=== PATIENT | male | born 1995 ===

== ENCOUNTER 2017-05-28 15:16 | Inpatient (IN) | payer OTHER ==
[~2017-05-28] VITALS: Ht 172.7 cm; Wt 61.9 kg
[2017-05-28] MEDS ORDERED: ONDANSETRON INJ 2 MG/ML 2 ML VIAL IV STA (15:50)
[2017-05-28] MEDS ORDERED: SODIUM CHLORIDE 0.9% 1000ML 1,000 ML IV STA (15:50)
[2017-05-28] MEDS ORDERED: OPTIRAY 320 IV PRN (16:00)
[2017-05-28 16:50] LABS: BASO % 0.8 %; BASO ABS # 0.03 K/uL (0-0.2); HEMATOCRIT 47.1 % (42-52); HEMOGLOBIN 16.5 g/dL (14.0-18.0); IG# 0.01 K/uL (0.00-0.02); LYMPH ABS # 0.78 K/uL (1.2-3.4); MEAN CELL VOLUME 81.5 fL (80-100); MEAN CORPUSCULAR HEMOGLOBIN 28.5 pg (25-34); MEAN PLATELET VOLUME 10.2 fL (7.4-10.4); MONO % 14.8 %; MONO ABS # 0.55 K/uL (0.11-0.59); NEUT % 63.1 %; NEUT ABS # 2.35 K/uL (1.4-6.5); PLATELET COUNT 198 K/uL (130-400); RED CELL DISTRIBUTION WIDTH CV 12.6 % (11.5-14.5); RED CELL DISTRIBUTION WIDTH SD 37.8 fL (36.4-46.3); WHITE BLOOD COUNT 3.72 K/uL (4.8-10.8)
[2017-05-28 17:08] LABS: ALBUMIN 4.1 gm/dl (3.4-5.0); CALCIUM 8.9 mg/dl (8.5-10.1); CREATININE 1.09 mg/dl (0.60-1.40); POTASSIUM 3.8 mmol/L (3.5-5.1)
[2017-05-28 17:16] LABS: TOTAL PROTEIN 8.1 gm/dl (6.4-8.2)
--- NOTE | 2017-05-28 17:38 | DIAGNOSTIC IMAGING REPORT ---
CT ABD/PELVIS IV CONTRAST ONLY CLINICAL HISTORY: Generalized abdominal pain COMPARISON STUDY: None. TECHNIQUE: Following the IV administration of 115 mL of Optiray-320, CT scan of the abdomen and pelvis was performed from the lung bases to the proximal femurs. Images are reviewed in the axial, sagittal, and coronal planes. IV contrast was administered without complication. A dose lowering technique was utilized adhering to the principles of ALARA. CT DOSE: 260.53 mGy.cm FINDINGS: Lower chest: The heart is normal in size and configuration, without pericardial effusion. The lung bases and pleural spaces are clear. Liver: The contrast-enhanced liver is normal in size, contour, and attenuation. There is no intrahepatic biliary ductal dilatation. The hepatic veins and portal veins are patent. Gallbladder: Unremarkable. Spleen: Normal in size and attenuation. Pancreas: Unremarkable. Adrenal glands: Unremarkable. Kidneys: There is symmetric renal cortical enhancement. The kidneys are normal in size without hydronephrosis. Bowel: There are no transition zones indicate bowel obstruction. There is no acute diverticulitis. The appendix is probably visualized on coronal reformatted images. There are no CT findings to indicate acute appendicitis. Peritoneum: There is no intraperitoneal free air or abdominal ascites. Vasculature: The abdominal aorta is normal in course and caliber. Adenopathy: There are borderline enlarged mesenteric lymph nodes, likely reactive. Pelvic viscera: The bladder, and pelvic viscera are unremarkable. Skeletal structures: No destructive osseous lesions are seen. IMPRESSION: 1. No evidence of bowel obstruction. No evidence of free air 2. No acute inflammatory changes 3. Borderline enlarged mesenteric lymph nodes, likely reactive Electronically signed by: Don Carballo M.D. 05/28/2017 5:35 PM Dictated Date/Time: 05/28/2017 5:31 PM
[2017-05-28 18:17] LABS: HEP C IGG 13 YRS+OLDER_RFLX NEG (NEG)
[2017-05-28] MEDS ORDERED: ACETAMINOPHEN 325 MG TAB PO PRN (19:45)
[2017-05-28] MEDS ORDERED: ALUMINUM/MAGNESIUM/SIMETH (MAALOX MAX) 30 ML UDC PO PRN (19:45)
[2017-05-28] MEDS ORDERED: MAGNESIUM HYDROXIDE SUSP 30 ML UDC PO PRN (19:45)
[2017-05-28] MEDS ORDERED: ONDANSETRON INJ 2 MG/ML 2 ML VIAL IV PRN (19:45)
--- NOTE | 2017-05-28 20:20 | History and Physical ---
History & Physical Date & Time of Service: May 28, 2017 at 19:46 Chief Complaint: Fever,Loss Of Appetite, Stomach Issues,A Year Ago Primary Care Physician: [facility] History of Present Illness Source: patient, clinic records, hospital records Patient is a pleasant 22 y/o male, with PMHx of typhoid fever, who presented to the ED because of persistent N/V/D, loss of appetite, fever, and body aches x3 weeks. Patient was in [place] over break. During that time, he fell into a sewage drain while playing soccer. He believes he ingested some sewage because when he got out he was coughing. The next day he started to develop fever, abdominal cramping, N/V/D. He was seen by provider in [facility] and placed on antibiotics. The [place] the [place] and symptoms seemed to be resolving. However, over the last 3 days he has been experiencing fevers. He notes he was seen by [facility]- stool cultures and O&P were negative, malaria was negative, influenza and mono negative. Stools alternate between diarrhea and constipation. He denies any melena or BRBPR. He denies tobacco or alcohol use. +anxiousness. +fever/chills. Patient denies any sweats, lightheadedness, dizziness, vision changes, CP, palpitations, edema, SOB, wheezing, cough, urinary symptoms, melena, numbness/ tingling, weakness, depression, active bleeding, or new skin discoloration/ changes. Past Medical/Surgical History Medical Problems: h/o typhoid fever Social History Smoking Status: Never Smoker Drug Use: none Occupational Status: [employer] student Allergies Coded Allergies: Amoxicillin (Unverified Allergy, Unknown, RASH, 05/28/17) Home Medications No Active Prescriptions or Reported Meds Physical Exam Vital Signs Date Time Temp Pulse Resp B/P (MAP) Pulse Ox O2 Delivery O2 Flow Rate FiO2 05/28/17 18:35 80 16 117/80 97 Room Air 05/28/17 18:35 83 18 117/80 100 Room Air 05/28/17 17:00 83 18 108/77 100 Room Air 05/28/17 15:28 38.0 116 20 125/87 97 Room Air General Appearance: no apparent distress Head: normocephalic, atraumatic Eyes: normal inspection, PERRL ENT: hearing grossly normal Neck: supple Respiratory/Chest: lungs clear, no respiratory distress, no accessory muscle use Cardiovascular: regular rate, rhythm Abdomen/GI: normal bowel sounds, non tender, soft Back: normal inspection Extremities/Musculoskelatal: no calf tenderness, no pedal edema Neurologic/Psych: alert, normal mood/affect, oriented x 3 Skin: normal color, warm/dry, no rash Diagnostics Laboratory Results Results Past 24 Hours Test 05/28/17 16:31 Range/Units White Blood Count 3.72 4.8-10.8 K/uL Red Blood Count 5.78 4.7-6.1 M/uL Hemoglobin 16.5 14.0-18.0 g/dL Hematocrit 47.1 42-52 % Mean Corpuscular Volume 81.5 80-100 fL Mean Corpuscular Hemoglobin 28.5 25-34 pg Mean Corpuscular Hemoglobin Concent 35.0 32-36 g/dl Platelet Count 198 130-400 K/uL Mean Platelet Volume 10.2 7.4-10.4 fL Neutrophils (%) (Auto) 63.1 % Lymphocytes (%) (Auto) 21.0 % Monocytes (%) (Auto) 14.8 % Eosinophils (%) (Auto) 0.0 % Basophils (%) (Auto) 0.8 % Neutrophils # (Auto) 2.35 1.4-6.5 K/uL Lymphocytes # (Auto) 0.78 1.2-3.4 K/uL Monocytes # (Auto) 0.55 0.11-0.59 K/uL Eosinophils # (Auto) 0.00 0-0.5 K/uL Basophils # (Auto) 0.03 0-0.2 K/uL RDW Standard Deviation 37.8 36.4-46.3 fL RDW Coefficient of Variation 12.6 11.5-14.5 % Immature Granulocyte % (Auto) 0.3 % Immature Granulocyte # (Auto) 0.01 0.00-0.02 K/uL Urine Color DK YELLOW Urine Appearance CLEAR CLEAR Urine pH 6.5 4.5-7.5 Urine Specific [place] 1.017 1.000-1.030 Urine Protein NEG NEG Urine Glucose (UA) NEG NEG Urine Ketones TRACE NEG Urine Occult Blood NEG NEG Urine Nitrite NEG NEG Urine Bilirubin NEG NEG Urine Urobilinogen NEG NEG Urine Leukocyte Esterase NEG NEG Urine WBC (Auto) 1-5 0-5 /hpf Urine RBC (Auto) 5-10 0-4 /hpf Urine Hyaline Casts (Auto) 1-5 0-5 /lpf Urine Epithelial Cells (Auto) 20-30 0-5 /lpf Urine Bacteria (Auto) NEG NEG Sodium Level 135 136-145 mmol/L Potassium Level 3.8 3.5-5.1 mmol/L Chloride Level 103 98-107 mmol/L Carbon Dioxide Level 27 21-32 mmol/L Anion Gap 5.0 3-11 mmol/L Blood Urea Nitrogen 7 7-18 mg/dl Creatinine 1.09 0.60-1.40 mg/dl Est Creatinine Clear Calc Drug Dose 94.6 ml/min Estimated GFR () 112.6 Estimated GFR (Non- 97.2 BUN/Creatinine Ratio 6.6 10-20 Random Glucose 97 70-99 mg/dl Calcium Level 8.9 8.5-10.1 mg/dl Total Bilirubin 1.0 0.2-1 mg/dl Direct Bilirubin 0.5 0-0.2 mg/dl Aspartate Amino Transf (AST/SGOT) 1137 15-37 U/L Alanine Aminotransferase (ALT/SGPT) 876 12-78 U/L Alkaline Phosphatase 159 45-117 U/L Total Protein 8.1 6.4-8.2 gm/dl Albumin 4.1 3.4-5.0 gm/dl Lipase 113 73-393 U/L Hepatitis B Surface Antigen NEG NEG Hepatitis C Antibody NEG NEG Diagnostic Radiology CT ABD/PELVIS IV CONTRAST ONLY CLINICAL HISTORY: Generalized abdominal pain COMPARISON STUDY: None. TECHNIQUE: Following the IV administration of 115 mL of Optiray-320, CT scan of the abdomen and pelvis was performed from the lung bases to the proximal femurs. Images are reviewed in the axial, sagittal, and coronal planes. IV contrast was administered without complication. A dose lowering technique was utilized adhering to the principles of ALARA. CT DOSE: 260.53 mGy.cm FINDINGS: Lower chest: The heart is normal in size and configuration, without pericardial effusion. The lung bases and pleural spaces are clear. Liver: The contrast-enhanced liver is normal in size, contour, and attenuation. There is no intrahepatic biliary ductal dilatation. The hepatic veins and portal veins are patent. Gallbladder: Unremarkable. Spleen: Normal in size and attenuation. Pancreas: Unremarkable. Adrenal glands: Unremarkable. Kidneys: There is symmetric renal cortical enhancement. The kidneys are normal in size without hydronephrosis. Bowel: There are no transition zones indicate bowel obstruction. There is no acute diverticulitis. The appendix is probably visualized on coronal reformatted images. There are no CT findings to indicate acute appendicitis. Peritoneum: There is no intraperitoneal free air or abdominal ascites. Vasculature: The abdominal aorta is normal in course and caliber. Adenopathy: There are borderline enlarged mesenteric lymph nodes, likely reactive. Pelvic viscera: The bladder, and pelvic viscera are unremarkable. Skeletal structures: No destructive osseous lesions are seen. IMPRESSION: 1. No evidence of bowel obstruction. No evidence of free air 2. No acute inflammatory changes 3. Borderline enlarged mesenteric lymph nodes, likely reactive Electronically signed by: Don Carballo M.D. 05/28/2017 5:35 PM Dictated Date/Time: 05/28/2017 5:31 PM The status of this report is Signed. Draft = Not yet reviewed or approved by Radiologist. Signed = Reviewed and approved by Radiologist. Impression Assessment and Plan Patient is a pleasant 22 y/o male, with PMHx of typhoid fever, who presented to the ED because of persistent N/V/D, loss of appetite, fever, and body aches x3 weeks. Persistent N/V/D, loss of appetite, fever, and body aches x3 weeks: - Admit to med/surg - IVF @ 125 ml/hr - Repeat Malaria - Hepatitis A pending - Check stool for salmonella Typhi per ID recommendations - Check Hepatitis E IgG and IgM - CT of abdominal w/ enlarged mesenteric lymph nodes - Consult GI, appreciate recommendations - Consult ID, appreciate recommendations- Dr. Yan believes likely hepatitis A, contact precautions for now, IV Rocephin for prophylaxis salmonella coverage Elevated LFTs, ?secondary to above: Follow CMP DVT prophylaxis: Ambulation Code status: LEVEL I, FULL Dispo: [employer] Level of Care Med/Surg Resuscitation Status FULL RESUSCITATION VTE Prophylaxis Given or contraindicated: T.E.Itz Stockjacinto, SCD's Note Attending Attestation & Admission Note: Pt seen/examined, chart reviewed, and care plan d/w SHAYLA Jimenez. I agree w/ the hook components of her admission documentation. 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 Traveled to [facility] over break. Fell in raw sewage ditch. 1-2 days later had fever, emesis, abd cramps; followed by foul-smelling diarrhea. Treated with fluoroquinolone for 3 days by his PCP back home in [facility]. Fever resolved, symptoms improved, but he never returned fully to baseline. Returned to [place] on May 12. Due to ongoing anorexia, intermittent diarrhea, abd symptoms - seen by [facility] on- campus - had malaria testing, stool O/P, stool culture - negative. LFTs 2-3 days ago showed elevated AST/ALT, however. 3 days ago fevers returned - 101-102. diarrhea 1x/day. abd discomfort. poor appetite. PMH, PSH, allergies, meds, sochx, famhx, ros - reviewed vitals - febrile, BP wnl, HR tachy gen - nontoxic, NAD mouth - MMM heart - tachy, s1, s2, no murmur lungs - CTA b/l abd - soft, liver edge not palpable but he is tender in the RUQ, BS+, no distension, no splenomegaly ext - no edema labs - mild leukopenia AST and ALT very high d. bili 0.5 BMP wnl A/P: Sepsis. Markedly elevated LFTs. 3-4 weeks of various GI symptoms/fevers. Diff - hepA, hepE, typhoid fever, malaria, other enteric pathogen. Doubt CMV or EBV. Check 2 sets of blood cx's. Send thick/thin smears for malaria. RUQ u/s. IV fluids. ID/GI consults. Place on empiric rocephin in the event he is salmonella typhi. contact isolation. repeat LFTs am. check INR to ensure liver function is stable. check tylenol level. could consider checking CMV/EBV titers if no other pathogen found. send stool for salmonella typhi. Uri Engel MD
[2017-05-28] MEDS ORDERED: POLYETHYLENE (MIRALAX) 17 GM PACK PO PRN (21:00)
--- NOTE | 2017-05-28 21:37 | EMERGENCY ROOM VISIT NOTE ---
History Report prepared by Jorge: Kathy Bautista Under the Supervision of: Dr. Moses Ridley D.O. First contact with patient: 15:41 Chief Complaint: FEVER Stated Complaint: FEVER,LOSS OF APPETITE, STOMACH ISSUES,A YEAR AGO History of Present Illness The patient is a 22 year old male who presents to the Emergency Room with complaints of an intermittent fever for the past 3 days. The patient states that he has been feeling unwell for a few weeks. He was at home in [facility] for winter break 3 weeks ago and fell into a sewage drain while playing soccer. He accidentally swallowed some of the sewage at that time. The next day he developed nausea, vomiting, and diarrhea. He saw his PCP at that time and was placed on an antibiotic. The patient states that his symptoms improved but he has still been having some intermittent nausea, diarrhea, and diffuse abdominal pain since then. He has been following-up with a doctor at [facility] since he returned to the [place]. He has been taking probiotics and antacids to manage his symptoms. The patient states that 3 days ago he developed a fever. He reports loss of appetite, nausea, and generalized body aches. He is no longer experiencing any vomiting. The patient checked his temperature last night and it was 101.5. Pt denies change in vision, cough, rhinorrhea, chest pain, shortness of breath, vomiting, urinary symptoms, melena, and any open wounds or sores. He has not been drinking any alcohol since his symptoms began 3 weeks ago. He still has his gallbladder and appendix. He denies any history of IV drug use. Pt previously tested negative for malaria at [facility]. Source of History: patient Onset: 3 days ago Position: head Symptom Intensity: temp 101.5 Quality: other (fever) Timing: intermittent Associated Symptoms: + nausea, + abdominal pain, + diarrhea, No cough, No chest pain, No SOB, No vomiting, No melena, No urinary symptoms Note: Pt notes generalized body aches and loss of appetite. Review of Systems See HPI for pertinent positives & negatives. A total of 10 systems reviewed and were otherwise negative. Past Medical & Surgical Medical Problems: (1) Fever (2) No significant active problems Family History No pertinent history stated. Social History Smoking Status: Never Smoker Alcohol Use: occasionally Housing Status: lives with roommate Occupation Status: [employer] Current/Historical Medications No Active Prescriptions or Reported Meds Allergies Coded Allergies: Amoxicillin (Unverified Allergy, Unknown, RASH, 05/28/17) Physical Exam Vital Signs Date Time Temp Pulse Resp B/P (MAP) Pulse Ox O2 Delivery O2 Flow Rate FiO2 05/28/17 20:25 38.7 97 16 119/82 99 Room Air 05/28/17 18:35 80 16 117/80 97 Room Air 05/28/17 18:35 83 18 117/80 100 Room Air 05/28/17 17:00 83 18 108/77 100 Room Air 05/28/17 15:28 38.0 116 20 125/87 97 Room Air Physical Exam GENERAL: Sitting up in bed, alert, well appearing, well nourished, no distress, non-toxic EYE EXAM: normal conjunctiva. OROPHARYNX: no exudate, no erythema, lips, buccal mucosa, and tongue normal and mucous membranes are moist NECK: supple, no nuchal rigidity, no adenopathy, non-tender LUNGS: Clear to auscultation. Normal chest wall mechanics HEART: no murmurs, S1 normal and S2 normal ABDOMEN: abdomen soft, non-tender, normo-active bowel sounds, no masses, no rebound or guarding. BACK: Back is symmetrical on inspection and there is no deformity, no midline tenderness, no CVA tenderness. SKIN: no rashes and no bruising UPPER EXTREMITIES: upper extremities are grossly normal. LOWER EXTREMITIES: No pitting edema. NEURO EXAM: Normal sensorium, cranial nerves II-XII grossly intact, normal speech, no gross weakness of arms, no gross weakness of legs. Medical Decision & Procedures ER Provider Diagnostic Interpretation: Radiology results as stated below per my review and the radiologist's interpretation: CT ABD/PELVIS IV CONTRAST ONLY CLINICAL HISTORY: Generalized abdominal pain COMPARISON STUDY: None. TECHNIQUE: Following the IV administration of 115 mL of Optiray-320, CT scan of the abdomen and pelvis was performed from the lung bases to the proximal femurs. Images are reviewed in the axial, sagittal, and coronal planes. IV contrast was administered without complication. A dose lowering technique was utilized adhering to the principles of ALARA. CT DOSE: 260.53 mGy.cm FINDINGS: Lower chest: The heart is normal in size and configuration, without pericardial effusion. The lung bases and pleural spaces are clear. Liver: The contrast-enhanced liver is normal in size, contour, and attenuation. There is no intrahepatic biliary ductal dilatation. The hepatic veins and portal veins are patent. Gallbladder: Unremarkable. Spleen: Normal in size and attenuation. Pancreas: Unremarkable. Adrenal glands: Unremarkable. Kidneys: There is symmetric renal cortical enhancement. The kidneys are normal in size without hydronephrosis. Bowel: There are no transition zones indicate bowel obstruction. There is no acute diverticulitis. The appendix is probably visualized on coronal reformatted images. There are no CT findings to indicate acute appendicitis. Peritoneum: There is no intraperitoneal free air or abdominal ascites. Vasculature: The abdominal aorta is normal in course and caliber. Adenopathy: There are borderline enlarged mesenteric lymph nodes, likely reactive. Pelvic viscera: The bladder, and pelvic viscera are unremarkable. Skeletal structures: No destructive osseous lesions are seen. IMPRESSION: 1. No evidence of bowel obstruction. No evidence of free air 2. No acute inflammatory changes 3. Borderline enlarged mesenteric lymph nodes, likely reactive Electronically signed by: Don Carballo M.D. 05/28/2017 5:35 PM Dictated Date/Time: 05/28/2017 5:31 PM Laboratory Results 05/28/17 16:31 Red Blood Count 5.78, Mean Corpuscular Volume 81.5, Mean Corpuscular Hemoglobin 28.5, Mean Corpuscular Hemoglobin Concent 35.0, Mean Platelet Volume 10.2, Neutrophils (%) (Auto) 63.1, Lymphocytes (%) (Auto) 21.0, Monocytes (%) (Auto) 14.8, Eosinophils (%) (Auto) 0.0, Basophils (%) (Auto) 0.8, Neutrophils # (Auto ) 2.35, Lymphocytes # (Auto) 0.78, Monocytes # (Auto) 0.55, Eosinophils # (Auto ) 0.00, Basophils # (Auto) 0.03 05/28/17 16:31 Test 05/28/17 16:31 White Blood Count 3.72 K/uL (4.8-10.8) Red Blood Count 5.78 M/uL (4.7-6.1) Hemoglobin 16.5 g/dL (14.0-18.0) Hematocrit 47.1 % (42-52) Mean Corpuscular Volume 81.5 fL (80-100) Mean Corpuscular Hemoglobin 28.5 pg (25-34) Mean Corpuscular Hemoglobin Concent 35.0 g/dl (32-36) Platelet Count 198 K/uL (130-400) Mean Platelet Volume 10.2 fL (7.4-10.4) Neutrophils (%) (Auto) 63.1 % Lymphocytes (%) (Auto) 21.0 % Monocytes (%) (Auto) 14.8 % Eosinophils (%) (Auto) 0.0 % Basophils (%) (Auto) 0.8 % Neutrophils # (Auto) 2.35 K/uL (1.4-6.5) Lymphocytes # (Auto) 0.78 K/uL (1.2-3.4) Monocytes # (Auto) 0.55 K/uL (0.11-0.59) Eosinophils # (Auto) 0.00 K/uL (0-0.5) Basophils # (Auto) 0.03 K/uL (0-0.2) RDW Standard Deviation 37.8 fL (36.4-46.3) RDW Coefficient of Variation 12.6 % (11.5-14.5) Immature Granulocyte % (Auto) 0.3 % Immature Granulocyte # (Auto) 0.01 K/uL (0.00-0.02) Urine Color DK YELLOW Urine Appearance CLEAR (CLEAR) Urine pH 6.5 (4.5-7.5) Urine Specific [place] 1.017 (1.000-1.030) Urine Protein NEG (NEG) Urine Glucose (UA) NEG (NEG) Urine Ketones TRACE (NEG) Urine Occult Blood NEG (NEG) Urine Nitrite NEG (NEG) Urine Bilirubin NEG (NEG) Urine Urobilinogen NEG (NEG) Urine Leukocyte Esterase NEG (NEG) Urine WBC (Auto) 1-5 /hpf (0-5) Urine RBC (Auto) 5-10 /hpf (0-4) Urine Hyaline Casts (Auto) 1-5 /lpf (0-5) Urine Epithelial Cells (Auto) 20-30 /lpf (0-5) Urine Bacteria (Auto) NEG (NEG) Anion Gap 5.0 mmol/L (3-11) Est Creatinine Clear Calc Drug Dose 94.6 ml/min Estimated GFR () 112.6 Estimated GFR (Non- 97.2 BUN/Creatinine Ratio 6.6 (10-20) Calcium Level 8.9 mg/dl (8.5-10.1) Total Bilirubin 1.0 mg/dl (0.2-1) Direct Bilirubin 0.5 mg/dl (0-0.2) Aspartate Amino Transf (AST/SGOT) 1137 U/L (15-37) Alanine Aminotransferase (ALT/SGPT) 876 U/L (12-78) Alkaline Phosphatase 159 U/L (45-117) Total Protein 8.1 gm/dl (6.4-8.2) Albumin 4.1 gm/dl (3.4-5.0) Lipase 113 U/L (73-393) Hepatitis B Surface Antigen NEG (NEG) Hepatitis C Antibody NEG (NEG) Laboratory results per my review. Medications Administered Medications (Trade) Dose Ordered Sig/Nilson Route Start Time Stop Time Status Last Admin Dose Admin Sodium Chloride 1,000 ml @ 999 mls/hr Q1H1M STAT IV 05/28/17 15:50 05/28/17 16:50 DC 05/28/17 16:45 999 MLS/HR Ondansetron HCl (Zofran Inj) 4 mg NOW STAT IV 05/28/17 15:50 05/28/17 15:57 DC 05/28/17 17:00 4 MG ED Course ED COURSE: Vital signs were reviewed and showed febrile, tachycardic. The patients medical record was reviewed The above diagnostic studies were performed and reviewed. ED treatments and interventions as stated above. 1541: The patient was evaluated in room C12B. A complete history and physical examination was performed. 1550: Zofran 4 mg IV, NSS 1000 ml @ 999 mls/hr IV 1823: I spoke with Dr. Engel. We discussed the patient's case. The patient will be evaluated by the [facility] for further management. 1837: Upon reevaluation, the patient is resting comfortably. I discussed my findings with the patient and he understands and agrees with the treatment plan. Based on the patients age, coexisting illnesses, exam and lab findings the decision to treat as an inpatient was made. The patient remained stable while under my care. The patient will be evaluated for further management. 1839: I discussed the case with Dr. Awan of GI. She was in agreement with the current plan. Medical Decision Differential diagnoses includes but is not limited to gastritis, peptic ulcer disease, GERD, gallbladder disease, pancreatitis, small bowel obstruction, acute coronary syndrome, pericarditis, ischemic bowel, irritable bowel disease, irritable bowel syndrome, appendicitis, diverticulitis, malignancy, hernia, urinary tract infection, torsion, perforation, trauma, infectious, malaria, typhoid fever, hepatitis. Patient is a 22-year-old male who presents to ER for nausea, vomiting and intermittent diarrhea along with abdominal cramps over the past 3 weeks. Symptoms restarted 3 days ago. Does have diffuse body aches. Labs show a mild leukopenia. No anemia or thrombocytopenia. BMP was unremarkable. LFTs show an AST of 1100 and then a LT of 900. Phosphorus was elevated. Bili was normal. Lipase normal. UA was negative but did have some small red cells. Hepatitis panel was ordered. CT of the abdomen and pelvis was unremarkable. Patient previously tested for ova and parasites along with C. difficile and malaria which were all negative. Do question hepatitis A vs E. Also considered malaria although recently tested for negative and typhoid. Not taking large amounts of Tylenol. Discussed with GI and internal medicine. Patient will be admitted for further workup of his hepatitis. Medication Reconcilliation Current Medication List: was personally reviewed by me Blood Pressure Screening Patient's blood pressure: Normal blood pressure Consults Time Called: 1822 Consulting Physician: Dr. Engel Returned Call: [address] Engel. We discussed the patient's case. The patient will be evaluated by the [facility] for further management. Additional Consults: Time Called: 1830 Consulted Physician: Dr. Awan Returned Call: [phone] Additional Comments: I discussed the case with Dr. Awan of GI. She was in agreement with the current plan. Impression Primary Impression: Hepatitis Additional Impression: Transaminitis Scribe Attestation The scribe's documentation has been prepared under my direction and personally reviewed by me in its entirety. I confirm that the note above accurately reflects all work, treatment, procedures, and medical decision making performed by me. Departure Information Dispostion Being Evaluated By Hospitalist Prescriptions No Active Prescriptions or Reported Meds Referrals No Doctor, Assigned (PCP) Patient Instructions [facility] Problem Qualifiers
[2017-05-28] MEDS ORDERED: SODIUM CHLORIDE 0.9% 1000ML 1,000 ML IV SCH (22:00)
[2017-05-28 22:07] VITALS: BP 112/76; PULSE 106; TEMP 39.3; O2SAT 99; Ht 172.7 cm; Wt 61.9 kg
[2017-05-28] MEDS: CEFTRIAXONE SOD INJ 1 GM in DEXTROSE 5% ADD-VANTAGE 50ML 50 ML IV SCH (22:49)
[2017-05-28] MEDS ORDERED: IBUPROFEN 600 MG TAB PO PRN (23:00)
[2017-05-28 23:27] VITALS: BP 117/81; PULSE 115; TEMP 39.4; O2SAT 97
[2017-05-29] VITALS (7 sets, daily range): BP systolic 92–114; BP diastolic 59–79; PULSE 68–84; TEMP 36.6–37.6; O2SAT 95–98
[2017-05-29] MEDS: CEFTRIAXONE SOD INJ 1 GM in DEXTROSE 5% ADD-VANTAGE 50ML 50 ML IV SCH ×2
--- NOTE | 2017-05-29 06:42 | DIAGNOSTIC IMAGING REPORT ---
BILIARY ULTRASOUND CLINICAL HISTORY: Nausea, fever, elevated LFTs. Possible hepatitis. COMPARISON STUDY: CT scan dated 05/28/2017 FINDINGS: The pancreas appears sonographically normal. The liver appears sonographically normal. There is no ductal dilatation. The common bile duct measures 3 mm. There is no right-sided hydronephrosis. No gallstones are visualized. There is a 4 mm echogenic focus along the anterior aspect of the gallbladder wall. This did not move and likely are presenting a small polyp. There is mild gallbladder wall thickening/edema, at the gallbladder liver interface. IMPRESSION: 1. Mild gallbladder wall thickening/edema at the gallbladder liver interface 2. Probable 4 mm gallbladder polyp 3. Ultrasonographically normal liver and pancreas. 4. No evidence of ductal dilatation. Electronically signed by: Don Carballo M.D. 05/29/2017 6:40 AM Dictated Date/Time: 05/29/2017 6:38 AM
[2017-05-29 07:13] LABS: BASO % 1.8 %; BASO ABS # 0.06 K/uL (0-0.2); HEMATOCRIT 40.1 % (42-52); HEMOGLOBIN 14.1 g/dL (14.0-18.0); LYMPH % 47.6 %; LYMPH ABS # 1.57 K/uL (1.2-3.4); MEAN CORPUSCULAR HEMOGLOBIN 28.8 pg (25-34); MEAN CORPUSCULAR HGB CONC 35.2 g/dl (32-36); MEAN PLATELET VOLUME 10.1 fL (7.4-10.4); MONO % 10.3 %; MONO ABS # 0.34 K/uL (0.11-0.59); NEUT % 40.3 %; NEUT ABS # 1.33 K/uL (1.4-6.5); PLATELET COUNT 169 K/uL (130-400); RED CELL DISTRIBUTION WIDTH CV 12.7 % (11.5-14.5); RED CELL DISTRIBUTION WIDTH SD 38.5 fL (36.4-46.3)
[2017-05-29] MEDS: D5NSS + 20MEQ KCL 1,000 ML IV SCH ×4 (07:41→22:18)
[2017-05-29 07:44] LABS: ALBUMIN 3.1 gm/dl (3.4-5.0); CALCIUM 7.7 mg/dl (8.5-10.1); CREATININE 1.08 mg/dl (0.60-1.40); POTASSIUM 3.9 mmol/L (3.5-5.1)
[2017-05-29 07:56] LABS: TOTAL PROTEIN 6.2 gm/dl (6.4-8.2)
--- NOTE | 2017-05-29 10:47 | Medical Consult ---
Consultation Date of Consultation: May 29, 2017. Attending Physician: Sd Mukherjee MD Reason for Consultation: Nausea and vomiting, fever, elevated liver enzymes History of Present Illness 22-year-old male in prior good health was traveling several weeks ago in [place] when he inadvertently fell into raw sewage drain. He feels he may have aspirated some sewage at the time. He subsequently developed fever, chills, nausea, vomiting, diarrhea. He was treated with antibiotic combination while in [place] with some improvement. However over the last several days, patient has developed progressively worsening weakness, fatigue, nausea, vomiting, anorexia, with some diarrhea as well as fever and chills. Workup so far has shown elevated liver enzymes, negative cultures, negative hepatitis-B surface antigen. Malaria smear negative. Patient has previous history of typhoid fever , and thinks that he received immunization after that episode several years ago. Past Medical/Surgical History Medical Problems: (1) Hepatitis Status: Acute (2) Transaminitis Status: Acute Medical Problems: (1) Fever (2) No significant active problems Family History Noncontributory Social History Smoking Status: Current Some Day Smoker Drug Use: none Housing Status: lives with roommate Occupation Status: [employer] student Allergies Coded Allergies: Amoxicillin (Unverified Allergy, Unknown, RASH, 05/28/17) Current Inpatient Medications Current Inpatient Medications Medications (Trade) Dose Ordered Sig/Nilson Route Start Time Stop Time Status Last Admin Dose Admin Ioversol (Optiray 320) 100 ml UD PRN IV 05/28/17 16:00 06/01/17 15:59 Al Hydrox/Mg Hydrox/Simethicone (Maalox Max Susp) 15 ml Q4H PRN PO 05/28/17 19:45 06/27/17 19:44 Magnesium Hydroxide (Milk Of Magnesia Susp) 30 ml Q6H PRN PO 05/28/17 19:45 06/27/17 19:44 Polyethylene (Miralax Powder Packet) 17 gm DAILY PRN PO 05/28/17 21:00 06/27/17 20:59 Ondansetron HCl (Zofran Inj) 4 mg Q6H PRN IV 05/28/17 19:45 06/27/17 19:44 Ceftriaxone Sodium 1 gm/ Dextrose 50 ml @ 100 mls/hr Q24H IV 05/28/17 22:00 06/07/17 21:59 05/29/17 00:00 100 MLS/HR Potassium Chloride/Dextrose/ Sod Cl 1,000 ml @ 125 mls/hr Q8H IV 05/28/17 22:30 06/27/17 22:29 05/29/17 07:41 125 MLS/HR Ibuprofen (Motrin Tab) 600 mg QID PRN PO 05/28/17 23:00 06/27/17 22:59 05/29/17 00:00 600 MG Doxycycline Hyclate (Vibramycin Cap) 100 mg BID PO 05/29/17 21:00 06/08/17 20:59 UNV Review of Systems Constitutional: + fever, + chills, + weakness, + fatigue Eyes: No problem reported ENT: No problem reported Respiratory: No problem reported Abdomen: + nausea, + vomiting, + diarrhea, No GI bleeding Musculoskeletal: + joint pain, + muscle pain Genitourinary - Male: No problem reported Neurologic: + weakness Psychiatric: No problem reported Endocrine: No problem reported Hematologic / Lymphatic: No problem reported Integumentary: No problem reported Allergic / Immunologic: No problem reported Physical Exam Date Time Temp Pulse Resp B/P (MAP) Pulse Ox O2 Delivery O2 Flow Rate FiO2 05/29/17 10:29 37.3 05/29/17 08:00 Room Air 05/29/17 07:26 36.6 76 16 92/59 (70) 95 Room Air 05/29/17 00:20 Room Air 05/28/17 23:27 39.4 115 16 117/81 (93) 97 Room Air 05/28/17 22:07 39.3 106 20 112/76 99 Room Air 05/28/17 20:25 38.7 97 16 119/82 99 Room Air 05/28/17 18:35 80 16 117/80 97 Room Air 05/28/17 18:35 83 18 117/80 100 Room Air 05/28/17 17:00 83 18 108/77 100 Room Air 05/28/17 15:28 38.0 116 20 125/87 97 Room Air General Appearance: WD/WN, no apparent distress Head: normocephalic, atraumatic Eyes: normal inspection, EOMI, sclerae normal ENT: normal ENT inspection, hearing grossly normal, pharynx normal Neck: supple, no adenopathy, thyroid normal, trachea midline Respiratory/Chest: chest non-tender, lungs clear, normal breath sounds, no respiratory distress Cardiovascular: regular rate, rhythm, no gallop, no murmur Abdomen/GI: normal bowel sounds, soft, no organomegaly, + tenderness (Mild right upper quadrant without rebound or guarding) Back: normal inspection, no CVA tenderness Extremities/Musculoskelatal: normal inspection, no calf tenderness, normal capillary refill, non-tender Neurologic/Psych: alert, oriented x 3 Skin: normal color, warm/dry, no rash Lymphatic: no adenopathy Laboratory Results Date/Time Source Procedure Growth Status 05/28/17 22:55 Blood Blood Culture Pending Received 05/28/17 22:48 Blood Blood Culture Pending Received 05/28/17 20:27 Blood Parasitology Test - Preliminary Resulted Last 24 Hours Test 05/28/17 16:31 05/28/17 22:48 05/29/17 06:43 White Blood Count 3.72 K/uL 3.30 K/uL Red Blood Count 5.78 M/uL 4.89 M/uL Hemoglobin 16.5 g/dL 14.1 g/dL Hematocrit 47.1 % 40.1 % Mean Corpuscular Volume 81.5 fL 82.0 fL Mean Corpuscular Hemoglobin 28.5 pg 28.8 pg Mean Corpuscular Hemoglobin Concent 35.0 g/dl 35.2 g/dl Platelet Count 198 K/uL 169 K/uL Mean Platelet Volume 10.2 fL 10.1 fL Neutrophils (%) (Auto) 63.1 % 40.3 % Lymphocytes (%) (Auto) 21.0 % 47.6 % Monocytes (%) (Auto) 14.8 % 10.3 % Eosinophils (%) (Auto) 0.0 % 0.0 % Basophils (%) (Auto) 0.8 % 1.8 % Neutrophils # (Auto) 2.35 K/uL 1.33 K/uL Lymphocytes # (Auto) 0.78 K/uL 1.57 K/uL Monocytes # (Auto) 0.55 K/uL 0.34 K/uL Eosinophils # (Auto) 0.00 K/uL 0.00 K/uL Basophils # (Auto) 0.03 K/uL 0.06 K/uL RDW Standard Deviation 37.8 fL 38.5 fL RDW Coefficient of Variation 12.6 % 12.7 % Immature Granulocyte % (Auto) 0.3 % 0.0 % Immature Granulocyte # (Auto) 0.01 K/uL 0.00 K/uL Urine Color DK YELLOW Urine Appearance CLEAR Urine pH 6.5 Urine Specific Crawford 1.017 Urine Protein NEG Urine Glucose (UA) NEG Urine Ketones TRACE Urine Occult Blood NEG Urine Nitrite NEG Urine Bilirubin NEG Urine Urobilinogen NEG Urine Leukocyte Esterase NEG Urine WBC (Auto) 1-5 /hpf Urine RBC (Auto) 5-10 /hpf Urine Hyaline Casts (Auto) 1-5 /lpf Urine Epithelial Cells (Auto) 20-30 /lpf Urine Bacteria (Auto) NEG Sodium Level 135 mmol/L 140 mmol/L Potassium Level 3.8 mmol/L 3.9 mmol/L Chloride Level 103 mmol/L 107 mmol/L Carbon Dioxide Level 27 mmol/L 23 mmol/L Anion Gap 5.0 mmol/L 9.0 mmol/L Blood Urea Nitrogen 7 mg/dl 5 mg/dl Creatinine 1.09 mg/dl 1.08 mg/dl Est Creatinine Clear Calc Drug Dose 94.6 ml/min 95.5 ml/min Estimated GFR () 112.6 113.9 Estimated GFR (Non- 97.2 98.3 BUN/Creatinine Ratio 6.6 4.7 Random Glucose 97 mg/dl 130 mg/dl Calcium Level 8.9 mg/dl 7.7 mg/dl Total Bilirubin 1.0 mg/dl 1.4 mg/dl Direct Bilirubin 0.5 mg/dl Aspartate Amino Transf (AST/SGOT) 1137 U/L 1117 U/L Alanine Aminotransferase (ALT/SGPT) 876 U/L 977 U/L Alkaline Phosphatase 159 U/L 141 U/L Total Protein 8.1 gm/dl 6.2 gm/dl Albumin 4.1 gm/dl 3.1 gm/dl Lipase 113 U/L Hepatitis B Surface Antigen NEG Hepatitis C Antibody NEG Prothrombin Time 11.0 SECONDS Prothromb Time International Ratio 1.0 Acetaminophen Level < 2 ug/ml Magnesium Level 1.9 mg/dl Globulin 3.1 gm/dl Albumin/Globulin Ratio 1.0 Patient Name: MADISON STEINER Unit Number: [id number] Dictated: 05/28/171730 Transcribed: 05/28/171730 ARG Printed Date/Time: [~ rep prt dt]/[~ rep prt tm] [~ rep ct labl] - [~ rep ct ivnm] [facility] Radiology Department [place], [place] [id number] Dictated: 05/28/171730 Transcribed: 05/28/171730 ARG Printed Date/Time: [~ rep prt dt]/[~ rep prt tm] [~ rep ct labl] - [~ rep ct ivnm] CT ABD/PELVIS IV CONTRAST ONLY CLINICAL HISTORY: Generalized abdominal pain COMPARISON STUDY: None. TECHNIQUE: Following the IV administration of 115 mL of Optiray-320, CT scan of the abdomen and pelvis was performed from the lung bases to the proximal femurs. Images are reviewed in the axial, sagittal, and coronal planes. IV contrast was administered without complication. A dose lowering technique was utilized adhering to the principles of ALARA. CT DOSE: 260.53 mGy.cm FINDINGS: Lower chest: The heart is normal in size and configuration, without pericardial effusion. The lung bases and pleural spaces are clear. Liver: The contrast-enhanced liver is normal in size, contour, and attenuation. There is no intrahepatic biliary ductal dilatation. The hepatic veins and portal veins are patent. Gallbladder: Unremarkable. Spleen: Normal in size and attenuation. Pancreas: Unremarkable. Adrenal glands: Unremarkable. Kidneys: There is symmetric renal cortical enhancement. The kidneys are normal in size without hydronephrosis. Bowel: There are no transition zones indicate bowel obstruction. There is no acute diverticulitis. The appendix is probably visualized on coronal reformatted images. There are no CT findings to indicate acute appendicitis. Peritoneum: There is no intraperitoneal free air or abdominal ascites. Vasculature: The abdominal aorta is normal in course and caliber. Adenopathy: There are borderline enlarged mesenteric lymph nodes, likely reactive. Pelvic viscera: The bladder, and pelvic viscera are unremarkable. Skeletal structures: No destructive osseous lesions are seen. IMPRESSION: 1. No evidence of bowel obstruction. No evidence of free air 2. No acute inflammatory changes 3. Borderline enlarged mesenteric lymph nodes, likely reactive Electronically signed by: Don Carballo M.D. 05/28/2017 5:35 PM Dictated Date/Time: 05/28/2017 5:31 PM The status of this report is Signed. Draft = Not yet reviewed or approved by Radiologist. Signed = Reviewed and approved by Radiologist. <AttendingPhy></AttendingPhy> <FamilyPhy></FamilyPhy> <PrimaryPhy>No Doctor, Assigned</PrimaryPhy> <UnitNumber>[id number]</UnitNumber> <VisitNumber> [id number]</VisitNumber> <PatientName>MADISON STEINER</PatientName> <DateOfBirth >1995</DateOfBirth> <Location>[facility]</Location> <ServiceDate>05/28/17</ ServiceDate> <MNE>ESINDI</MNE> <OrderingPhy>[facility] DO</OrderingPhy> < OrderingPhyMNE>f rep ord dr argueta</OrderingPhyMNE> <DictatingPhyMNE>f rep dict dr argueta</DictatingPhyMNE> <CCListMNE>f rep ct mne</CCListMNE> <AdmittingPhyMNE>f pt admit dr argueta</AdmittingPhyMNE> <AttendingPhyMNE>f pt attend dr argueta</ AttendingPhyMNE> <ConsultingPhyMNE>f pt consult dr argueta</ConsultingPhyMNE> <FamilyPhyMNE>f pt fam dr argueta</FamilyPhyMNE> <OtherPhyMNE>f pt other dr argueta</OtherPhyMNE> < PrimaryPhyMNE>f pt prim care dr argueta</PrimaryPhyMNE> <ReferringPhyMNE>f pt referring dr argueta</ReferringPhyMNE> Assessment & Plan 22-year-old previously healthy male with prolonged febrile illness now with elevation of liver enzymes after exposure to raw sewage. Extensive differential diagnosis includes diseases such as typhoid fever, leptospirosis, hepatitis A and E, Dengue fever or Chikungunya virus as well as EBV, CMV. Appropriate serologies to be ordered, patient to be continued empirically on ceftriaxone and I have added doxycycline to cover for potential leptospiral infection. Will follow.
[2017-05-29] MEDS: DOXYCYCLINE HYCLATE 100 MG CAP PO SCH ×2 (11:41→21:45)
--- NOTE | 2017-05-29 17:15 | Family Medicine Progress Note ---
Progress Note Date of Service May 29, 2017. Subjective Pt evaluation today including: conversation w/ patient, physical exam, chart review, lab review Patient reports decreased appetite and nausea after eating. He c/o fever for the past three days. He has had fatigue, nausea and diarrhea for the past 3 weeks. Describes a unintentional weight loss of 10 lbs. This morning the patient reports feeling better. Constitutional: + fever, + chills Respiratory: No cough, No sputum, No wheezing, No shortness of breath Cardiovascular: No chest pain, No edema, No palpitations Abdomen: + pain, + nausea (ruq), + diarrhea, + constipation, No vomiting Male : No dysuria Medications Current Inpatient Medications Medications (Trade) Dose Ordered Sig/Nilson Route Start Time Stop Time Status Last Admin Dose Admin Ioversol (Optiray 320) 100 ml UD PRN IV 05/28/17 16:00 06/01/17 15:59 Al Hydrox/Mg Hydrox/Simethicone (Maalox Max Susp) 15 ml Q4H PRN PO 05/28/17 19:45 06/27/17 19:44 Magnesium Hydroxide (Milk Of Magnesia Susp) 30 ml Q6H PRN PO 05/28/17 19:45 06/27/17 19:44 Polyethylene (Miralax Powder Packet) 17 gm DAILY PRN PO 05/28/17 21:00 06/27/17 20:59 Ondansetron HCl (Zofran Inj) 4 mg Q6H PRN IV 05/28/17 19:45 06/27/17 19:44 Ceftriaxone Sodium 1 gm/ Dextrose 50 ml @ 100 mls/hr Q24H IV 05/28/17 22:00 06/07/17 21:59 05/29/17 00:00 100 MLS/HR Potassium Chloride/Dextrose/ Sod Cl 1,000 ml @ 125 mls/hr Q8H IV 05/28/17 22:30 06/27/17 22:29 05/29/17 14:14 125 MLS/HR Doxycycline Hyclate (Vibramycin Cap) 100 mg BID PO 05/29/17 11:30 06/08/17 11:29 05/29/17 11:41 100 MG Objective Vital Signs Date Time Temp Pulse Resp B/P (MAP) Pulse Ox O2 Delivery O2 Flow Rate FiO2 05/29/17 18:04 37.5 68 18 105/67 (80) 98 Room Air 05/29/17 16:00 98 Room Air 05/29/17 15:42 37.3 68 18 104/72 (83) 98 Room Air 05/29/17 10:29 37.3 05/29/17 08:00 Room Air 05/29/17 07:26 36.6 76 16 92/59 (70) 95 Room Air 05/29/17 00:20 Room Air 05/28/17 23:27 39.4 115 16 117/81 (93) 97 Room Air 05/28/17 22:07 39.3 106 20 112/76 99 Room Air Physical Exam General Appearance: WD/WN, no apparent distress Eyes: sclerae normal Neck: supple, no adenopathy Respiratory/Chest: chest non-tender, lungs clear, normal breath sounds Cardiovascular: regular rate, rhythm, no edema, no gallop Abdomen: normal bowel sounds, + tenderness (epigastric, RUQ with palpation ) Neurologic/Psychiatric: alert, normal mood/affect, oriented x 3 Skin: normal color, warm/dry, no rash Laboratory Results 05/29/17 06:43 Red Blood Count 4.89, Mean Corpuscular Volume 82.0, Mean Corpuscular Hemoglobin 28.8, Mean Corpuscular Hemoglobin Concent 35.2, Mean Platelet Volume 10.1, Neutrophils (%) (Auto) 40.3, Lymphocytes (%) (Auto) 47.6, Monocytes (%) (Auto) 10.3, Eosinophils (%) (Auto) 0.0, Basophils (%) (Auto) 1.8, Neutrophils # (Auto ) 1.33, Lymphocytes # (Auto) 1.57, Monocytes # (Auto) 0.34, Eosinophils # (Auto ) 0.00, Basophils # (Auto) 0.06 05/29/17 06:43 Test 05/28/17 22:48 05/29/17 06:43 05/29/17 11:09 05/29/17 11:37 Prothrombin Time 11.0 SECONDS (9.0-12.0) Prothromb Time International Ratio 1.0 (0.9-1.1) Acetaminophen Level < 2 ug/ml (10-30) White Blood Count 3.30 K/uL (4.8-10.8) Red Blood Count 4.89 M/uL (4.7-6.1) Hemoglobin 14.1 g/dL (14.0-18.0) Hematocrit 40.1 % (42-52) Mean Corpuscular Volume 82.0 fL (80-100) Mean Corpuscular Hemoglobin 28.8 pg (25-34) Mean Corpuscular Hemoglobin Concent 35.2 g/dl (32-36) Platelet Count 169 K/uL (130-400) Mean Platelet Volume 10.1 fL (7.4-10.4) Neutrophils (%) (Auto) 40.3 % Lymphocytes (%) (Auto) 47.6 % Monocytes (%) (Auto) 10.3 % Eosinophils (%) (Auto) 0.0 % Basophils (%) (Auto) 1.8 % Neutrophils # (Auto) 1.33 K/uL (1.4-6.5) Lymphocytes # (Auto) 1.57 K/uL (1.2-3.4) Monocytes # (Auto) 0.34 K/uL (0.11-0.59) Eosinophils # (Auto) 0.00 K/uL (0-0.5) Basophils # (Auto) 0.06 K/uL (0-0.2) RDW Standard Deviation 38.5 fL (36.4-46.3) RDW Coefficient of Variation 12.7 % (11.5-14.5) Immature Granulocyte % (Auto) 0.0 % Immature Granulocyte # (Auto) 0.00 K/uL (0.00-0.02) Anion Gap 9.0 mmol/L (3-11) Est Creatinine Clear Calc Drug Dose 95.5 ml/min Estimated GFR () 113.9 Estimated GFR (Non- 98.3 BUN/Creatinine Ratio 4.7 (10-20) Calcium Level 7.7 mg/dl (8.5-10.1) Magnesium Level 1.9 mg/dl (1.8-2.4) Total Bilirubin 1.4 mg/dl (0.2-1) Aspartate Amino Transf (AST/SGOT) 1117 U/L (15-37) Alanine Aminotransferase (ALT/SGPT) 977 U/L (12-78) Alkaline Phosphatase 141 U/L (45-117) Total Protein 6.2 gm/dl (6.4-8.2) Albumin 3.1 gm/dl (3.4-5.0) Globulin 3.1 gm/dl (2.5-4.0) Albumin/Globulin Ratio 1.0 (0.9-2) Date/Time Source Procedure Growth Status 05/29/17 11:37 Stool C.difficile Toxin B Gene (PCR) - Final No C. difficile toxin B gene detected Complete Assessment and Plan Patient is a pleasant 22 y/o male, with PMHx of typhoid fever, who presented to the ED because of persistent N/V/D, loss of appetite, fever, and body aches x3 weeks. 05/29 Seen by infectious disease and gastro. Wide range of infectious test ordered. Empirical abx tx initiated. Vitals have been stable throughout the day. Sepsis based on SIRS criteria -WBC; 3.72, Tmax 39.3 -BC pending -CT ab results 1. No evidence of bowel obstruction. No evidence of free air 2. No acute inflammatory changes 3. Borderline enlarged mesenteric lymph nodes, likely reactive -UA negative -IVF -IV Rocephin and Doxycycline -Ice packs to be used for fevers Diarrhea illness -Shigella pending -Cdiff negative -Peripheral smear-no parasite seen -Giardia pending Transaminitis -Ast 1137, alt 1117 -tylenol tox negative -hep panel b/c negative, a pending -EBV/CMV pending -Holding antipyretics Nausea/Abdominal pain -Zofran -USG results;1. Mild gallbladder wall thickening/edema at the gallbladder liver interface Full code History Pt reports improved fatigue, fever, myalgia and RUQ abdominal pain since admission. PCP is patient's uncle, who is staying abreast through the patient. Appetite returning. Was playing soccer in [facility] and chased ball toward sewage - ball was saved but he tripped and fell and was COMPLETELY submerged. General Appearance: WD/WN, no apparent distress Eye Exam: bilateral eye normal inspection, bilateral eye PERRL, bilateral eye EOMI Ears, Nose, Throat: normal ENT inspection, hearing grossly normal, TMs normal, pharynx normal Neck: full range of motion, supple, normal inspection Respiratory: chest non-tender, lungs clear, normal breath sounds, no respiratory distress Cardiovascular: normal peripheral pulses, regular rate, rhythm, no murmur Gastrointestinal: normal bowel sounds, soft, no organomegaly, tenderness (RUQ w / +ve Neff) Extremities: normal range of motion, non-tender, normal inspection 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 Obtain [facility] records for vaccines. Repeat peripheral smear for parasitosis and malaria. Continue empiric coverage. Transaminitis - GI consultation - Awaiting hepatitis results. Trend CMP DVT PPX: Ambulation/SCD FULL CODE
--- NOTE | 2017-05-29 18:01 | Medical Student: [facility] ---
Med Student History & Physical Date & Time of Service: May 29, 2017 at 17:42 Chief Complaint: FEVER Primary Care Physician: [facility] History of Present Illness Source: patient This is a 22-year-old man with a history of typhoid who presents with a 3 week history of nausea, fluctuating non-bloody diarrhea up to 10x per day and constipation, decreased appetite, fever, and body aches. 3 weeks ago, he was in [place] where he fell into a sewage drain while playing soccer and was completely submerged in the sewage. He said once he was removed from the drain that he was coughing and thought maybe he swallowed some of the sewage. He the developed above symptoms and was treated with a 'very general antibiotic.' He did have improvement of symptoms with treatment with the exception of persistent nausea and bowel changes. Fever, body aches, and malaise became worse again 3 days ago which prompted him to go to [facility] on campus. He says that they tested him for malaria, flu, and mono there and that all of these tests were negative. He came to [facility] for evaluation due to increasing worry about his symptoms. This morning he says he is feeling fine but that is typical for the morning, and his symptoms usually progress as the day goes on. He has not had a bowel movement today and says that he was straining to go. He denies subjective fever currently. Patient's main concern is getting updates on the test results so that he can relay them to his uncle that is a physician in [place]. Past Medical/Surgical History Past Medical History: 1. Typhoid fever 3 years ago 2. Asthma in childhood Surgical History 1. Hernia repair as Family History Father: coronary artery disease, HTN Social History Alcohol Use: none Drug Use: none Housing status: other (lives off campus) Occupational Status: [employer] student Immunizations Other Immunizations: awaiting documentation from [facility] Allergies Coded Allergies: Amoxicillin (Unverified Allergy, Unknown, RASH, 05/28/17) Medications No Active Prescriptions or Reported Meds Review of Systems Constitutional: + weight loss (5 pounds over past 3 weeks), No fever, No chills Respiratory: + dyspnea on exertion, No dyspnea at rest Cardiovascular: No chest pain Abdomen: + pain, + nausea, + constipation, No vomiting Musculoskeletal: + muscle pain Genitourinary - Male: No dysuria Psychiatric: + anxiety, + problem reported (increased irritability) Hematologic / Lymphatic: No abnormal bleeding/bruising Integumentary: + itch Physical Exam Vital Signs (24 Hours) Date Time Temp Pulse Resp B/P (MAP) Pulse Ox O2 Delivery O2 Flow Rate FiO2 05/29/17 15:42 37.3 68 18 104/72 (83) 98 Room Air 05/29/17 10:29 37.3 05/29/17 08:00 Room Air 05/29/17 07:26 36.6 76 16 92/59 (70) 95 Room Air 05/29/17 00:20 Room Air 05/28/17 23:27 39.4 115 16 117/81 (93) 97 Room Air 05/28/17 22:07 39.3 106 20 112/76 99 Room Air 05/28/17 20:25 38.7 97 16 119/82 99 Room Air 05/28/17 18:35 80 16 117/80 97 Room Air 05/28/17 18:35 83 18 117/80 100 Room Air General Appearance: no apparent distress Eyes: normal inspection, EOMI, sclerae normal ENT: hearing grossly normal Respiratory/Chest: lungs clear, normal breath sounds, no respiratory distress Cardiovascular: regular rate, rhythm, no gallop, no murmur Abdomen/GI: normal bowel sounds, + tenderness (in RUQ) Back: no CVA tenderness Neurologic/Psych: alert, normal mood/affect Diagnostics Laboratory Results Results Past 24 Hours Test 05/28/17 22:48 05/29/17 06:43 05/29/17 11:09 05/29/17 11:37 Range/Units Prothrombin Time 11.0 9.0-12.0 SECONDS Prothromb Time International Ratio 1.0 0.9-1.1 Acetaminophen Level < 2 10-30 ug/ml White Blood Count 3.30 4.8-10.8 K/uL Red Blood Count 4.89 4.7-6.1 M/uL Hemoglobin 14.1 14.0-18.0 g/dL Hematocrit 40.1 42-52 % Mean Corpuscular Volume 82.0 80-100 fL Mean Corpuscular Hemoglobin 28.8 25-34 pg Mean Corpuscular Hemoglobin Concent 35.2 32-36 g/dl Platelet Count 169 130-400 K/uL Mean Platelet Volume 10.1 7.4-10.4 fL Neutrophils (%) (Auto) 40.3 % Lymphocytes (%) (Auto) 47.6 % Monocytes (%) (Auto) 10.3 % Eosinophils (%) (Auto) 0.0 % Basophils (%) (Auto) 1.8 % Neutrophils # (Auto) 1.33 1.4-6.5 K/uL Lymphocytes # (Auto) 1.57 1.2-3.4 K/uL Monocytes # (Auto) 0.34 0.11-0.59 K/uL Eosinophils # (Auto) 0.00 0-0.5 K/uL Basophils # (Auto) 0.06 0-0.2 K/uL RDW Standard Deviation 38.5 36.4-46.3 fL RDW Coefficient of Variation 12.7 11.5-14.5 % Immature Granulocyte % (Auto) 0.0 % Immature Granulocyte # (Auto) 0.00 0.00-0.02 K/uL Sodium Level 140 136-145 mmol/L Potassium Level 3.9 3.5-5.1 mmol/L Chloride Level 107 98-107 mmol/L Carbon Dioxide Level 23 21-32 mmol/L Anion Gap 9.0 3-11 mmol/L Blood Urea Nitrogen 5 7-18 mg/dl Creatinine 1.08 0.60-1.40 mg/dl Est Creatinine Clear Calc Drug Dose 95.5 ml/min Estimated GFR () 113.9 Estimated GFR (Non- 98.3 BUN/Creatinine Ratio 4.7 10-20 Random Glucose 130 70-99 mg/dl Calcium Level 7.7 8.5-10.1 mg/dl Magnesium Level 1.9 1.8-2.4 mg/dl Total Bilirubin 1.4 0.2-1 mg/dl Aspartate Amino Transf (AST/SGOT) 1117 15-37 U/L Alanine Aminotransferase (ALT/SGPT) 977 12-78 U/L Alkaline Phosphatase 141 45-117 U/L Total Protein 6.2 6.4-8.2 gm/dl Albumin 3.1 3.4-5.0 gm/dl Globulin 3.1 2.5-4.0 gm/dl Albumin/Globulin Ratio 1.0 0.9-2 Microbiology Results 05/28/17 Blood Culture, Received Pending 05/28/17 Blood Culture, Received Pending 05/28/17 Parasitology Test - Final, Complete 05/29/17 C.difficile Toxin B Gene (PCR) - Final, Complete No C. difficile toxin B gene detected 05/29/17 Shiga Toxin Test, Received Pending 05/29/17 Stool Culture, Received Pending Impression Assessment and Plan This is a 22 year old man with a history of typhoid who presents with fever, RUQ pain, nausea, fluctuating bowel patterns, and severe transaminitis concerning for hepatitis. TRANSAMINITIS / SEPSIS - With recent travel history, his abdominal symptoms, and transaminitis around the 1000s, pt likely has viral hepatitis. Hep B and C are both negative. Hep A, CMV, and EMV are pending. Further infectious differential with the sewage exposure is broad. Patient was started on rocephin for covering salmonella typhi. ID also had concern for leptospirosis and placed the patient on doxycycline. Dr. Yan offered that pt could also have Dengue or Typhoid. Shiga toxin negative. Blood cultures pending. C diff negative. - Peripheral parasite blood smear looking for malaria was negative. - CT of the abdomen was not concerning for appendicitis. - If the illness does not declare itself in the infectious work-up, we will also look into non-infectious causes such as autoimmune hepatitis. Acetaminophen level was not elevated on admission. Pt denies alcohol use. Pt's family history only significant for heart disease; did not mention liver disease in the family. With weight loss, CT showing mesenteric lymphadenopathy, consider lymphoma work-up. - Continue pt on replacement fluids at 125 cc/hour. - Vital signs are currently stable. - Continue to offer Zofran PRN for nausea. - Remain in contact precautions due to infection of unknown etiology. Level of Care Med/Surg Advanced Directives Existing Living Will: No Existing Power of Smoking Pipe Liner: No
--- NOTE | 2017-05-29 22:29 | GASTROINTESTINAL CONSULTATION ---
DATE OF CONSULTATION: 05/29/2017 REQUESTING PROVIDER: Uri Engel MD. CHIEF COMPLAINT: Abnormal liver tests, low grade fever, ingestion of sewage. HISTORY OF PRESENT ILLNESS: Mr. Barraza is a 22-year-old [place] male who approximately 3 weeks ago while visiting [facility] and playing soccer inadvertently had slipped and fallen into a ditch that contained raw sewage. During the process he ingested some of the contents of it and for a period of time after this he did have a pattern of abdominal symptoms with loose stools. These symptoms persisted intermittently, but recently with persistent nausea, vomiting, diarrhea presented to the Emergency Room. The patient denies any melena or bright red blood per rectum. He did not have any high grade fevers, although did report to me that he had a fever as high as 103 over the past 24 hours. There has been no change in his stool or urine color; however. The patient has no significant past medical history, although apparently did have a history of typhoid fever in the past. He also had an inguinal hernia repair. He believes he was vaccinated against hepatitis B, but is fairly sure that he was not vaccinated for hepatitis A as a youth. 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 SOCIAL HISTORY: The patient denies tobacco or alcohol use. ALLERGIES: AMOXICILLIN WHICH MAY HAVE BEEN A RASH. MEDICATIONS: He takes no medications, although he did receive only 2 doses of paracetamol (Tylenol) recently, but has not been using either this chronically or NSAIDs at all. FAMILY HISTORY: Unremarkable for known gastrointestinal or liver diseases. The patient is single. PHYSICAL EXAMINATION: GENERAL: Today shows a thin, well-developed [place] male in no acute distress. HEENT: His sclerae are anicteric, conjunctiva moist. Oral mucosa moist. HEART: Normal S1, S2. LUNGS: Clear to auscultation. ABDOMEN: Soft, flat, nondistended, minimally tender in the epigastrium without rebound or guarding. There is no clubbing, cyanosis or edema. RECTAL: Deferred at this time. VITAL SIGNS: Today show afebrile status 37.3, blood pressure 104/72, respirations 18, heart rate 68, 98% on room air; however, earlier during the hospitalization, he was found to have a fever curve overnight last evening at 10 and 11 p.m. as high as 39.4 degrees at which time he was slightly tachycardic. HOSPITAL MEDICATIONS: Include doxycycline as well as Rocephin that is being used empirically for possible leptospirosis. He also has p.r.n. ibuprofen, potassium supplements, MiraLax powder, magnesium hydroxide p.r.n. and Zofran p.r.n. LABORATORY STUDIES: On admission showed a white count of 3.72, which today was 3.3, hemoglobin 16.5 on admission and currently 14.1, MCV is 82, platelet count is normal at 169,000 today. His differential does not show any elevations in eosinophils, basophils lymphocytes although neutrophils are slightly low at 1.33 today by automated assessment. Percentage however, is normal at 40.3%. There is no evidence for eosinophilia. His imaging studies show a CT scan of the abdomen on May 28 that revealed no evidence for bowel obstruction or acute inflammatory changes. There may be borderline enlarged mesenteric lymph nodes that were more likely reactive. Gallbladder ultrasound also performed on May 28 showed mild gallbladder wall thickening, probable 4 mm gallbladder polyp. Ultrasound liver and pancreas, otherwise normal without evidence of ductal dilation or other parenchymal abnormalities described in the liver. Laboratory studies by serology show that the patient is negative for hepatitis B surface antigen and hepatitis C antibody. Core IgM, hepatitis A IgM are pending at this time. In addition, CMV and EBV are also pending. Additional miscellaneous testing includes hepatitis E antibody testing that is also hepatitis E IgG and IgM markers are pending at this time. IMPRESSION AND PLAN: The patient with a fever on admission along with a relative leukopenia, although no evidence for thrombocytopenia or anemia. This accompanied exposure to sewage in [place] with oral ingestion of sewage contents. The patient currently has no icterus. His transaminases; however, are elevated on admission and AST was 1137 and had drifted slightly down to date 1117. However, ALT was 876 on admission is up to 977 today. Alkaline phosphatase 159 down to 141 today. Total bilirubin on admission was 1 with a direct of 0.5 today, total bilirubin is 1.4. BUN and creatinine are 5 and 1.0. Potassium normal. The patient appears to have an acute hepatitis of unclear origin. There was prior vaccination for hepatitis B and surface antigen status is negative and therefore one would expect that this is not the case; however, confirmation with hepatitis B core IgM to exclude a window phase may be prudent. In addition, hepatitis A IgM is pending at this time. We will also look for hepatitis A total antibody. If this is positive, while IgM is negative, then this would likely reflect a remote infection with hepatitis A and suggest that these current liver enzymes are unrelated to acute hepatitis A infection. Hepatitis E infection is a possibility given its endemic nature in that region of the world and these results are pending at this time. The patient has been seen by infectious disease and is currently being empirically treated for leptospirosis with Rocephin and doxycycline. Would follow LFTs serially to see what is trending. However, if hepatitis seems to be occurring this could be the infectious basis for hepatitis A or E. Would advance diet as tolerated slowly with mostly bland foods and beverages. We will continue to follow with you. Stool studies by microbiology showed that there is no evidence for C. diff infection or evidence of peripheral blood parasites detected on blood smear. Blood cultures, Shiga testing and stool culture are pending. C. diff was negative. All questions answered for the patient. Would minimize the use of ibuprofen in the setting of this acute hepatitis as well as minimizing Tylenol. There is no alcohol history involved recently for the patient. [facility]
[2017-05-30] MEDS: D5NSS + 20MEQ KCL 1,000 ML IV SCH (05:43)
[2017-05-30 06:58] VITALS: BP 106/71; PULSE 71; TEMP 36.7; O2SAT 99
--- NOTE | 2017-05-30 07:33 | Family Medicine Progress Note ---
Progress Note Date of Service May 30, 2017.
[2017-05-30 07:38] LABS: HEMATOCRIT 40.3 % (42-52); HEMOGLOBIN 13.6 g/dL (14.0-18.0); MEAN CELL VOLUME 82.9 fL (80-100); MEAN CORPUSCULAR HGB CONC 33.7 g/dl (32-36); PLATELET COUNT 172 K/uL (130-400); RED CELL DISTRIBUTION WIDTH CV 13.1 % (11.5-14.5); RED CELL DISTRIBUTION WIDTH SD 39.5 fL (36.4-46.3); WHITE BLOOD COUNT 3.05 K/uL (4.8-10.8)
[2017-05-30 07:49] LABS: CALCIUM 7.7 mg/dl (8.5-10.1); CREATININE 0.9 mg/dl (0.60-1.40); POTASSIUM 4.2 mmol/L (3.5-5.1)
[2017-05-30 07:53] LABS: BASO ABS # 0.06 K/uL (0-0.2); EOS % 0.3 %; EOS ABS # 0.01 K/uL (0-0.5); LYMPH % 62.6 %; LYMPH ABS # 1.91 K/uL (1.2-3.4); MONO % 14.4 %; MONO ABS # 0.44 K/uL (0.11-0.59); NEUT % 20.7 %; NEUT ABS # 0.63 K/uL (1.4-6.5)
[2017-05-30 07:57] LABS: TOTAL PROTEIN 6.1 gm/dl (6.4-8.2)
[2017-05-30] MEDS: DOXYCYCLINE HYCLATE 100 MG CAP PO SCH (08:36)
[2017-05-30] MEDS ORDERED: FAMOTIDINE 20 MG TAB PO ONE (10:04)
[2017-05-30 12:14] LABS: HEPATITIS A IGM TC 51813E REACTIVE (NON-REACTIVE); HEPATITIS B CORE IGM TC51854R NON-REACTIVE (NON-REACTIVE)
--- NOTE | 2017-05-30 15:43 | Discharge Instructions ---
Discharge Instructions Date of Service May 30, 2017. Admission Reason for Admission: FEVER Discharge Discharge Diagnosis / Problem: hepatitis A Discharge Goals Goal(s): Improve function, Increase independence, Improve disease control, Improve nutritional status Activity Recommendations Activity Limitations: per Instructions/Follow-up section . Instructions / Follow-Up Instructions / Follow-Up Silviano Hernandez came to [facility] 3 weeks of illness; fever, fatigue, diarrhea and vomiting. We began testing you for a variety of infectious illness considering the presentation of your symptoms. We treated you with preventatively IV antibiotics , IVF and supportive treatments for fever and nausea. Your blood test were positive for Hepatitis A , a viral illness of your liver. Hep A is a self-resolving illness, which means that your immune system will eventually take care of the virus with out a specific treatment. We recommend that you stay hydrate, rest and avoid liver toxic substances. No alcohol, Tylenol or any other medications or supplements. We recommend that you follow up closely regarding your illness with [facility]. We recommend that they follow your liver enzymes, which will give them an indication of your disease course. If pending results are positive, you will be contacted. Information regarding you hospital stay will be passed on to [facility]. Plan; 1. take care of yourself. Get good rest, stay hydrate, eat healthy nutritious food. 2. Avoid liver toxic substances; avoid alcohol, Tylenol or any other medications or supplements 3. Follow up with [facility] for serial liver function testing It was a pleasure to take care of you. Be well, Sheeba Cisneros Current Hospital Diet Patient's current hospital diet: Regular Diet Discharge Diet Recommended Diet: Regular Diet Pending Studies Studies pending at discharge: yes List of pending studies: CMV, EBV Medical Emergencies . Who to Call and When: Medical Emergencies: If at any time you feel your situation is an emergency, please call 911 immediately. . Non-Emergent Contact Non-Emergency issues call your: Primary Care Provider Call Non-Emergent contact if: temperature is above 101.5 . . "Provider Documentation" section prepared by Canelo Cisneros. . VTE Core Measure Inpt VTE Proph given/why not?: Eloy Edmonds, [facility]
[2017-05-30 15:52] VITALS: BP 106/71; PULSE 71; TEMP 36.7; O2SAT 99
[2017-05-30 16:09] VITALS: BP 97/65; PULSE 62; TEMP 36.6; O2SAT 99
--- NOTE | 2017-05-30 18:15 | GASTROENTEROLOGY PROGRESS NOTE ---
DATE: 05/30/2017 GASTROENTEROLOGY INPATIENT PROGRESS NOTE Chart reviewed, the patient examined. LABORATORY STUDIES: Today showed evidence for hepatitis A, IgM, antibody reactivity and this is consistent with acute hepatitis A infection, presumably due to oral exposure to a non-sanitized waste product when traveling in [place]. Overall, the patient feels a little better today, has been afebrile. White count today is slightly lower than yesterday at 3.0, hemoglobin 13.6, platelets 172,000. Serum chemistry shows a slight increase in bilirubin to 1.7 with a direct fraction of 1.2, AST is down to 984 from 1117 yesterday, although ALT is elevated at 1231, up from 977 yesterday. Alkaline phosphatase is unchanged at 140. Other serology show hepatitis B core IgM antibody negative, hepatitis C negative, hepatitis B surface antigen negative. Tests for hepatitis E antibodies are pending at this time. PHYSICAL EXAMINATION: Unchanged. ABDOMEN: Soft, nontender, nondistended with bowel sounds. EXTREMITIES: Without edema. HEENT: Sclerae are anicteric currently. Oral mucosa moist. HEART: Normal S1, S2. LUNGS: Clear to auscultation. IMPRESSION AND PLAN: The patient with evidence of acute hepatitis A infection. Whether there is also concomitant hepatitis E anybody to suggest acute hepatitis E infection, given the source of the concomitant is unknown. Both of these are acute hepatitis that do not become chronic. At the present time, the patient has plans for discharge with observation as an outpatient in the primary care office. The patient was questioned about the oral fecal root of transmission, the importance of not sharing instrument of hygiene , utensils or glasses and to wash his hands thoroughly before and after bowel movements and urination. He also should avoid the use of alcoholic products and minimize or eliminate Tylenol unless there is significant fever. If there is evidence of deterioration with fever, recurrent nausea, vomiting, inability to tolerate food, significant jaundice or increasing sense of fatigue and malaise, he should either contact the primary care service or present to the Emergency Room. I did explain that at the present time he is considered infectious with his transaminase elevations and recent fever and fits with the time course of acute infectious days. Eventually, he may develop jaundice with change in stool or urine color, but usually this begins with the clearance of the virus and infectivity and assures recovery of the liver. All questions answered. If we can be of further assistance, please contact our office. Thank you for allowing us to participate in this pleasant gentleman's care. [facility]
--- NOTE | 2017-05-30 19:26 | Discharge Summary ---
Discharge Summary Date of Service May 30, 2017. Discharge Summary Admission Date: May 28, 2017 at 19:53 Discharge Date: May 30, 2017 Discharge Disposition: Home Principal Diagnosis: Hepatitis A Discharge Exam Review of Systems: Constitutional: No fever, No chills, No sweats Respiratory: No cough, No sputum Cardiovascular: No chest pain, No palpitations Abdomen: + pain, + nausea, No vomiting, No diarrhea Genitourinary - Male: No dysuria Physical Exam: General Appearance: WD/WN, no apparent distress Respiratory/Chest: chest non-tender, lungs clear, normal breath sounds Cardiovascular: regular rate, rhythm, no edema, no murmur Abdomen / GI: normal bowel sounds, non tender, soft Neurologic/Psychiatric: alert, normal mood/affect, oriented x 3 Skin: normal color, warm/dry, no rash Hospital Course 22 year old male presented to [facility] with fever, nausea and vomiting for 3 weeks. Patient reports that the sx began after falling in a sewage ditch while visiting family in [facility]. A detailed infectious workup became the focus; blood cultures, stool cultures, shiga, Giardia, leptospirosis, salmonella, hepatitis panel, ebv/cmv were ordered in addition to common labs. The patient was found to have extremely elevated transaminases and IgM positive Hep A. The patient was subsequently discharged with the diagnosis of hep A with close outpatient f/ u; serial LFT's. Additionally, GI recommends the following labs in the outpatient; Hep E for concomitant infection and Hep B antibody to check immune status. During hospital course, the patient was treated empirically for bacterial causes. In light of positive IgM, abx were not continued in the outpatient. Patient was treated with IVF and Zofran for nausea. See problem list below; Sepsis based on SIRS criteria -WBC; 3.72, Tmax 39.3 -BC pending -CT ab results 1. No evidence of bowel obstruction. No evidence of free air 2. No acute inflammatory changes 3. Borderline enlarged mesenteric lymph nodes, likely reactive -UA negative -IVF -IV Rocephin and Doxycycline -Ice packs to be used for fevers Diarrhea illness -Shigella pending -Cdiff negative -Peripheral smear-no parasite seen -Giardia pending Transaminitis -Ast 1137, alt 1117 -tylenol tox negative -hep panel b/c negative, a pending -EBV/CMV pending -Holding antipyretics Nausea/Abdominal pain -Zofran -USG results;1. Mild gallbladder wall thickening/edema at the gallbladder liver interface Total Time Spent: Less than 30 minutes This includes examination of the patient, discharge planning, medication reconciliation, and communication with other providers. Discharge Instructions Please refer to the electronic Patient Visit Report (Discharge Instructions) for additional information. Additional Copies To [facility] History Resident Physician Supervision Note: I was present with Dr. Cisneros during the history and exam. I discussed the case with the resident and agree with the findings and plan as documented in the note. Any exceptions or clarifications are listed here. Pt resting comfortably in bed with mild epigastric and RUQ pain improved from previous evaluation. Afebrile since previous evaluation. Some left shoulder pain which is worsened with movement and improves with positional changes without connection to food or nausea. 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 Remaining ID w/u pending as send out, but likely Hep A. Recheck CMP at f/u Transaminitis - GI consultation - as above. If sx recur after discharge, would consider follow up and treatment for leptospirosis w/ doxycycline.
[2017-05-30] MEDS ORDERED: FAMOTIDINE 20 MG TAB PO SCH (21:00)
--- NOTE | 2017-06-04 13:10 | EDITING REQUIRED CODING QUERY ---
SEPSIS To promote full compliance with coding requirements relating to patient care, physician participation is requested in all cases of crystalizer operator uncertainty. Please assist us with the question(s) below: In responding to this query, please exercise your independent professional judgement. The fact that a question is asked does not imply that any particular answer is desired or expected. We appreciate your clarification on this issue. Throughout the medical record, you have clearly documented a localized infection and your patient has clinical evidence of a generalized sepsis or severe sepsis. The term urosepsis is a nonspecific entity and is coded as an UTI. If the patient has sepsis, severe sepsis, from an urinary source or some other source, please clarify in your response below. The medical record reflects the following clinical findings: Patient with Hepatitis A confirmed - progress notes mention sepsis. Please check the diagnosis you were treating. Thank you! XENIA Goss [facility] ( )Bacteremia (Nonspecific laboratory finding of bacteria in the blood) Specify Organism ( ) Present on Admission ( ) Not present on admission ( ) Unable to clinically determine ( ) Septicemia (Systemic disease associated with the presence of pathogenic microorganisms in the blood): Specify Organism ( ) Present on Admission ( ) Not present on admission ( ) Unable to clinically determine ( ) Sepsis Specify Organism Specify Associated Condition/Diagnosis ( ) Present on Admission ( ) Not present on admission ( ) Unable to clinically determine ( ) Severe Sepsis (Sepsis associated with acute organ dysfunction) Specify Organism Specify Associated Condition/Diagnosis ( ) Present on Admission ( ) Not present on admission ( ) Unable to clinically determine ( ) Septic Shock (Severe sepsis with acute circulatory failure, unexplained by other causes) ( ) Present on Admission ( ) Not present on admission ( ) Unable to clinically determine ( ) Other, patient has:
--- NOTE | 2017-06-07 19:44 | GASTROINTESTINAL CONSULTATION ---
DATE OF CONSULTATION: 05/29/2017 ADDENDUM REVIEW OF SYSTEMS: The ROS for this consultation was apparently not captured by transcriptions. A review of systems was performed of the patient which demonstrated no rigors, palpitations, chest pain, shortness of breath, cough, sputum production, melena, bright red blood per rectum, rashes, significant joint aches, odynophagia or dysphagia. Symptoms of cramping, nausea, vomiting, diarrhea were present shortly after his ingestion of raw sewage in [place]. Review of system is otherwise noncontributory based on 13-point exam except for mentioned above. MTDD
== END 2017-05-30 16:30 | disposition home or self-care (01) | DRG 872 ==
LOC: C.EDB 15:19 → C.MS2W 19:53 → ENRESERV 20:04
PROVIDERS: ADMIT Internal Medicine; ATTEND Family Medicine
DX: A41.89 Other specified sepsis (principal); B15.9 Hepatitis A without hepatic coma; F17.200 Nicotine dependence, unspecified, uncomplicated; R74.0 Nonspecific elevation of levels of transaminase and lactic acid dehydrogenase [LDH]; Z86.19 Personal history of other infectious and parasitic diseases

== ENCOUNTER 2017-06-12 22:11 | Emergency (ER) | payer OTHER ==
[~2017-06-12] VITALS: Ht 170.2 cm; Wt 57.9 kg
[2017-06-12 22:34] VITALS: TEMP 36.5; Ht 170.2 cm; Wt 57.9 kg
[2017-06-12] MEDS ORDERED: HOME1SUB13 PO (23:23)
[2017-06-12] MEDS ORDERED: SODIUM CHLORIDE 0.9% 1000ML 1,000 ML IV STA (23:31)
[2017-06-12 23:43] LABS: BASO % 0.4 %; BASO ABS # 0.02 K/uL (0-0.2); EOS % 2.1 %; HEMATOCRIT 38.6 % (42-52); HEMOGLOBIN 13.8 g/dL (14.0-18.0); LYMPH % 40.7 %; LYMPH ABS # 1.96 K/uL (1.2-3.4); MEAN CELL VOLUME 78.1 fL (80-100); MEAN CORPUSCULAR HEMOGLOBIN 27.9 pg (25-34); MEAN CORPUSCULAR HGB CONC 35.8 g/dl (32-36); MEAN PLATELET VOLUME 9.6 fL (7.4-10.4); MONO % 13.3 %; MONO ABS # 0.64 K/uL (0.11-0.59); NEUT % 43.5 %; NEUT ABS # 2.09 K/uL (1.4-6.5); PLATELET COUNT 357 K/uL (130-400); RED CELL DISTRIBUTION WIDTH CV 15.7 % (11.5-14.5); RED CELL DISTRIBUTION WIDTH SD 44.9 fL (36.4-46.3); WHITE BLOOD COUNT 4.81 K/uL (4.8-10.8)
[2017-06-12 23:58] LABS: INR 1.1 (0.9-1.1); PTT PATIENT 30.4 SECONDS (21.0-31.0)
[2017-06-13 00:26] LABS: ALBUMIN 3.4 gm/dl (3.4-5.0); ALKALINE PHOSPHATASE 178 U/L (45-117); ALT/SGPT 151 U/L (12-78); AST/SGOT 61 U/L (15-37); BLOOD UREA NITROGEN 4 mg/dl (7-18); CALCIUM 9.5 mg/dl (8.5-10.1); CARBON DIOXIDE 25 mmol/L (21-32); GLUCOSE 105 mg/dl (70-99); POTASSIUM 3.4 mmol/L (3.5-5.1); SODIUM 137 mmol/L (136-145)
--- NOTE | 2017-06-13 00:40 | EMERGENCY ROOM VISIT NOTE ---
History Report prepared by Jorge: Jennifer Molina Under the Supervision of: Dr. Gogo Moe M.D. First contact with patient: 23:27 Chief Complaint: ABNORMAL LABS Stated Complaint: HIGH BILRABIN (HAS HEP A) -DR BERNABE History of Present Illness The patient is a 22 year old male who presents to the Emergency Room with complaints of persistent abnormal laboratory results which he obtained today. The patient states that he was diagnosed with Hepatitis A and Giardia during his last Emergency Department visit at the end of April 2016. He reports that on 05/01/16 he was playing soccer in [facility], noting that he fell into a sewer inspector and ingested some of the sewage water while coughing and believes this is how he came in contact with Hepatitis A. The patient reports that since he was released from the hospital, his LFT levels have gone down and his bilirubin has been going up, noting his bilirubin today was 24.5. He notes that he lost 10 pounds in the last 2 weeks, but has not been experiencing any diarrhea. The patient denies having any pain, but notes some nausea and discomfort in his lower abdomen which occurs after he eats. He notes that his skin has been itching and that his skin and eyes having been turning yellow. The patient notes that he has been having a hard time falling asleep. He denies taking any Tylenol to relieve any of his symptoms. Source of History: patient Onset: today Position: other (global) Quality: other (abnormal laboratory results) Timing: other (persistent) Note: Associated symptoms include: LFT levels have gone down and his Bilirubin has been going up, lost 10 pounds in the last 2 weeks, some nausea and discomfort in his lower abdomen which occurs after he eats, is skin has been itching and that his skin and eyes having been turning yellow, and a hard time falling asleep. Patient denies any diarrhea and any pain. Review of Systems See HPI for pertinent positives & negatives. A total of 10 systems reviewed and were otherwise negative. Past Medical & Surgical Medical Problems: (1) Fever (2) No significant active problems Family History Patient reports no known family medical history. No pertinent family history. Social History Smoking Status: Never Smoker Alcohol Use: occasionally Drug Use: none Marital Status: single Housing Status: lives with roommate Occupation Status: [employer] student Current/Historical Medications Scheduled Homeopathic Products (Liver Support), 1 TAB PO DAILY Scheduled PRN Lorazepam (Ativan), 0.5-1 MG PO qhs PRN for Sleep Allergies Coded Allergies: Amoxicillin (Unverified Allergy, Unknown, RASH, 06/12/17) Physical Exam Vital Signs Date Time Temp Pulse Resp B/P (MAP) Pulse Ox O2 Delivery O2 Flow Rate FiO2 06/13/17 02:04 71 18 121/71 95 06/13/17 00:36 81 18 127/80 94 Room Air 06/12/17 22:34 36.5 79 18 124/85 94 Room Air Physical Exam Vital signs reviewed. General: Jaundice, generally well appearing male otherwise, in no significant distress. HEENT: Postive scleral icterus, PERRLA, neck supple. Atraumatic. Cardiovascular: Regular rate and rhythm, no extra sounds. Pulmonary: Clear to auscultation bilaterally, normal work of breathing. Abdomen: Soft, nontender, nondistended, positive bowel sounds. Musculoskeletal: Atraumatic, no peripheral edema. Neurologic: Patient awake alert and oriented x 3, full strength in all 4 extremities. Cranial nerves 2 through 12 grossly intact. Skin: Warm, dry, no rash Medical Decision & Procedures ER Provider Diagnostic Interpretation: Radiology results as stated below per my review and radiologist interpretation: US GALLBLADDER: Comparison: US dated 05/29/2017. Contracted gallbladder. Gallbladder wall measures 4mm which may be related to underdistention. No evidence of gallstones. No biliary dilation. CBD measures 1mm. Unremarkable sonographic appearance of the liver. Unremarkable right kidney. No hydronephrosis. Radiologist: Jalyn Licea MD. Laboratory Results 06/12/17 23:30 Red Blood Count 4.94, Mean Corpuscular Volume 78.1, Mean Corpuscular Hemoglobin 27.9, Mean Corpuscular Hemoglobin Concent 35.8, Mean Platelet Volume 9.6, Neutrophils (%) (Auto) 43.5, Lymphocytes (%) (Auto) 40.7, Monocytes (%) (Auto) 13.3, Eosinophils (%) (Auto) 2.1, Basophils (%) (Auto) 0.4, Neutrophils # (Auto ) 2.09, Lymphocytes # (Auto) 1.96, Monocytes # (Auto) 0.64, Eosinophils # (Auto ) 0.10, Basophils # (Auto) 0.02 06/12/17 23:30 Test 06/12/17 23:30 06/13/17 01:00 White Blood Count 4.81 K/uL (4.8-10.8) Red Blood Count 4.94 M/uL (4.7-6.1) Hemoglobin 13.8 g/dL (14.0-18.0) Hematocrit 38.6 % (42-52) Mean Corpuscular Volume 78.1 fL (80-100) Mean Corpuscular Hemoglobin 27.9 pg (25-34) Mean Corpuscular Hemoglobin Concent 35.8 g/dl (32-36) Platelet Count 357 K/uL (130-400) Mean Platelet Volume 9.6 fL (7.4-10.4) Neutrophils (%) (Auto) 43.5 % Lymphocytes (%) (Auto) 40.7 % Monocytes (%) (Auto) 13.3 % Eosinophils (%) (Auto) 2.1 % Basophils (%) (Auto) 0.4 % Neutrophils # (Auto) 2.09 K/uL (1.4-6.5) Lymphocytes # (Auto) 1.96 K/uL (1.2-3.4) Monocytes # (Auto) 0.64 K/uL (0.11-0.59) Eosinophils # (Auto) 0.10 K/uL (0-0.5) Basophils # (Auto) 0.02 K/uL (0-0.2) RDW Standard Deviation 44.9 fL (36.4-46.3) RDW Coefficient of Variation 15.7 % (11.5-14.5) Immature Granulocyte % (Auto) 0.0 % Immature Granulocyte # (Auto) 0.00 K/uL (0.00-0.02) Prothrombin Time 11.7 SECONDS (9.0-12.0) Prothromb Time International Ratio 1.1 (0.9-1.1) Activated Partial Thromboplast Time 30.4 SECONDS (21.0-31.0) Partial Thromboplastin Ratio 1.2 Anion Gap 11.0 mmol/L (3-11) Est Creatinine Clear Calc Drug Dose ml/min Estimated GFR () Estimated GFR (Non- BUN/Creatinine Ratio (10-20) Calcium Level 9.5 mg/dl (8.5-10.1) Magnesium Level 2.0 mg/dl (1.8-2.4) Total Bilirubin 24.5 mg/dl (0.2-1) Direct Bilirubin 20.3 mg/dl (0-0.2) Aspartate Amino Transf (AST/SGOT) 61 U/L (15-37) Alanine Aminotransferase (ALT/SGPT) 151 U/L (12-78) Alkaline Phosphatase 178 U/L (45-117) Total Protein gm/dl (6.4-8.2) Albumin 3.4 gm/dl (3.4-5.0) Urine Color DK YELLOW Urine Appearance CLEAR (CLEAR) Urine pH 6.5 (4.5-7.5) Urine Specific Viper 1.006 (1.000-1.030) Urine Protein NEG (NEG) Urine Glucose (UA) NEG (NEG) Urine Ketones NEG (NEG) Urine Occult Blood NEG (NEG) Urine Nitrite POS (NEG) Urine Bilirubin 3+ (NEG) Urine Urobilinogen NEG (NEG) Urine Leukocyte Esterase NEG (NEG) Urine WBC (Auto) 0 /hpf (0-5) Urine RBC (Auto) 0-4 /hpf (0-4) Urine Hyaline Casts (Auto) 0 /lpf (0-5) Urine Epithelial Cells (Auto) 0-5 /lpf (0-5) Urine Bacteria (Auto) NEG (NEG) Laboratory results per my review. Medications Administered Medications (Trade) Dose Ordered Sig/Nilson Route Start Time Stop Time Status Last Admin Dose Admin Sodium Chloride 1,000 ml @ 150 mls/hr [id number] STAT IV 06/12/17 23:31 06/13/17 02:06 DC 06/12/17 23:31 150 MLS/HR Lorazepam (Ativan Inj) 0.5 mg NOW STAT IV 06/13/17 01:31 06/13/17 01:32 DC 06/13/17 01:41 0.5 MG ED Course 2329: Past medical records reviewed. The patient was evaluated in room C4. A complete history and physical examination was performed. 2331: Ordered Sodium Chloride 1000ml @ 150 mls/hr IV. 0131: Ordered Lorazepam 0.5mg IV. 0140: Upon reevaluation, the patient appeared to have improvement of his symptoms. I discussed findings with him and his family. They verbalized agreement of the treatment plan. The patient was discharged home. Medical Decision The patient is a 22 year old male who presents to the ED with complaints of abnormal laboratory results. Differentials include acute Hepatitis, Biliary obstruction, medication side effect, liver failure, and SBP. This patient was evaluated and appeared to be in no significant distress. Physical examination is significant for a marked jaundice appearance. Laboratory work was obtained and reveals a bilirubin of 24.5. Patient's INR is normal, AST and ALT have come back close to normal compared to previous numbers. The case was discussed with Dr. De La Cruz of gastroenterology. 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 The patient has no alteration in mental status at this time. Dr. De La Cruz has recommended follow-up as an outpatient for weekly INR and hepatic profiles. Patient was advised to stop the supplements he has been taking and restart the cholestyramine. Patient was also advised that the bilirubin may continue to rise over the next 2 weeks. Patient requested something to help him sleep and for the itching. He is artery tried Benadryl which made him more anxious. Patient was given 0.5 mg of Ativan and discharged with a short prescription to help him sleep at night. Patient was discharged in care of his family. He will return to the emergency department for worsening of symptoms or any medical concerns. Medication Reconcilliation Current Medication List: was personally reviewed by me Blood Pressure Screening Patient's blood pressure: Normal blood pressure Blood pressure disposition: Did not require urgent referral Impression Primary Impression: Cholestatic hepatitis Scribe Attestation The scribe's documentation has been prepared under my direction and personally reviewed by me in its entirety. I confirm that the note above accurately reflects all work, treatment, procedures, and medical decision making performed by me. Departure Information Dispostion Home / Self-Care Prescriptions Lorazepam (ATIVAN) 0.5 Mg Tab 0.5-1 MG PO qhs Y for Sleep, #20 TAB Prov: Gogo Moe M.D. 06/13/17 Referrals No Doctor, Assigned (PCP) Forms HOME CARE DOCUMENTATION FORM, IMPORTANT VISIT INFORMATION, WORK / SCHOOL INSTRUCTIONS Patient Instructions My [facility] Additional Instructions Diagnosis: Cholestatic hepatitis Please drink plenty of clear fluids. Resume Colace tyramine twice a day as previously prescribed. Stop all other current supplements and medications. Ativan 0.5-1 mg by mouth at night for sleep. You may continue Benadryl 25-50 mg every 6 hours as needed for itching during the day. Follow-up with your physician at [facility] this week for reevaluation. Return to the ER for worsening of symptoms or any medical concerns.
[2017-06-13] MEDS ORDERED: LORAZEPAM 2 MG/ML 1 ML VIAL IV STA (01:31)
[2017-06-13] MEDS ORDERED: LORA-741 PO (01:54)
[2017-06-13 02:04] VITALS: BP 121/71; PULSE 71; O2SAT 95
--- NOTE | 2017-06-13 06:56 | DIAGNOSTIC IMAGING REPORT ---
GALLBLADDER-ABD LIMITED CLINICAL HISTORY: 22 years-old Male presenting with painless jaundice, hyperbilirubinemia. TECHNIQUE: Real-time grayscale and limited color Doppler ultrasound imaging of the abdomen limited to the right upper quadrant was performed. COMPARISON: Ultrasound from 05/29/[address] from 05/28/2017. FINDINGS: Pancreas: Visualized portions of the pancreatic head, neck, and body are heterogeneous in appearance. No peripancreatic fluid. Liver: Normal echogenicity and echotexture. The liver measures 15 cm in maximal sagittal dimension. No sonographic evidence of hepatic mass. Main portal vein patent with normal directional flow. Biliary: No intrahepatic biliary ductal dilatation. Common bile duct measures up to 1 mm in diameter. Gallbladder: Decompressed. Apparent gallbladder wall thickening secondary to decompression. Right kidney: Normal in appearance. No hydronephrosis. Ascites: None. IMPRESSION: 1. No cholelithiasis or biliary ductal dilatation. No sonographic evidence of hepatitis, which does not exclude the diagnosis. 2. Heterogeneous appearance of the pancreas, nonspecific. The pancreas appeared normal on the prior CT from 05/28/2017. Correlate with lipase. Electronically signed by: Vinny Smyth M.D. 06/13/2017 6:55 AM Dictated Date/Time: 06/13/2017 6:52 AM
[2017-06-13 16:34] LABS: ISTAT CREATININE 0.7 mg/dl; ISTAT IONIZED CALCIUM 1.06 mmol/l; ISTAT POTASSIUM 5.4 mEq/L (3.3-5.0); ISTAT SODIUM 137 mEq/L (135-144)
== END 2017-06-13 02:04 | disposition home or self-care (01) ==
LOC: C.EDB 22:13 → C.EDC 06-13 02:04
DX: K75.89 Other specified inflammatory liver diseases (principal); Z88.1 Allergy status to other antibiotic agents